=== PATIENT | male | born 1960 ===

== ENCOUNTER 2017-09-12 21:45 | Emergency (ER) | payer OTHER ==
[~2017-09-12] VITALS: Ht 172.7 cm; Wt 69.9 kg
[~2017-09-12 21:45] MED LIST: CARVEDILOL25 MG; COREG CR10 MG PO; COZAAR50 MG; OMEPRAZOLE40 MG; RANITIDINE HCL300 MG
[2017-09-12] MEDS ORDERED: TOPROL XL200 MG (21:58)
[2017-09-12] MEDS ORDERED: AMBIEN10 MG (21:58)
[2017-09-12] MEDS ORDERED: DICLOFENAC POTA50 MG (21:59)
[2017-09-12] MEDS ORDERED: ASPIR 8181 MG (21:59)
[2017-09-12] MEDS ORDERED: AMLODIPINE-BEN1 EAC2 (21:59)
[2017-09-12] MEDS ORDERED: MELATIN3 MG (22:00)
[2017-09-13] MEDS ORDERED: KETO10TA2 PO (05:12)
== END 2017-09-13 05:18 | disposition home or self-care (01) ==
LOC: ER 21:45
DX: S00.83XS Contusion of other part of head, sequela (principal); X58.XXXS Exposure to other specified factors, sequela

== ENCOUNTER → 2018-07-25 | Day surgery (SDC) | payer OTHER ==
[~2018-07-25] MED LIST changes: +AMBIEN10 MG; +AMLODIPINE-BEN1 EAC2; +ASPIR 8181 MG; +COLACE100 MG PO; +DICLOFENAC POTA50 MG; +KETO10TA2 PO; +MELATIN3 MG; +PERCOCET 5-3251 EACH PO; +TOPROL XL200 MG
== END | disposition home or self-care (01) ==
LOC: EDSTATUS 07-22 14:00 → CIR.AMB 05:30
DX: A63.0 Anogenital (venereal) warts (principal); K64.4 Residual hemorrhoidal skin tags